=== PATIENT | female | born 1960 | race Caucasian/White ===

== ENCOUNTER 2016-09-13 14:19 | Emergency (ER) | payer MEDICARE, OTHER ==
[~2016-09-13] VITALS: Ht 157.5 cm; Wt 50.0 kg
[2016-09-13 14:21] VITALS: Ht 157.5 cm; Wt 50.0 kg
[2016-09-13 14:25] VITALS: BP 157/99; PULSE 79; RESP 22; TEMP 97.9
[2016-09-13] MEDS ORDERED: morphine 4 MG/ML VIAL IV STA (14:38)
[2016-09-13] MEDS ORDERED: ONDANSETRON 4 MG INJ IV STA (14:38)
--- NOTE | 2016-09-13 15:01 | ERD ---
ER Documentation Chief Complaint Date/Time DATE: 09/13/16 TIME: 14:59 Chief Complaint HTN WITH EYE PAIN HPI Patient is a 55-year-old female who had cataract surgery done this morning. She comes in via ambulance reporting severe right eye pain with vomiting secondary to the pain. She does not have visual loss however. She denies any trauma to the eye, fever, rhinorrhea, sore throat, otalgia, headache. She states she was in her usual state of health prior to the surgery. She says that when she does open her eyes she can see both myself and the nurse but we do appear blurry. In the remainder of the systems are negative. ROS All systems reviewed and are negative except as per history of present illness. Allergies Allergies: Coded Allergies: No Known Allergy (Unverified , 09/13/16) PMhx/Soc History of Surgery: Yes (right eye cataract sx in am 09/13/16) Anesthesia Reaction: No Hx Neurological Disorder: No Hx Respiratory Disorders: No Hx Cardiac Disorders: Yes (HTN) Hx Psychiatric Problems: No Hx Miscellaneous Medical Probl: Yes (DM) Hx Alcohol Use: No Hx Substance Use: No Hx Tobacco Use: No Smoking Status: Never smoker FmHx Family History: diabetes Physical Exam Vitals Vital Signs Date Time Temp Pulse Resp B/P Pulse Ox O2 Delivery O2 Flow Rate FiO2 09/13/16 14:25 97.9 79 22 157/99 99 Room Air 09/13/16 14:21 97.9 77 22 207/84 99 Physical Exam Const: Well-developed well-nourished female on the bed actively vomiting Head: Atraumatic, normocephalic Eyes: Normal Conjunctiva, right pupil is dilated and only sluggishly reactive to light, cornea is clear, I do not appreciate any bleeding within the globe, extraocular motions are intact ENT: Normal External Ears, Nose and Mouth. Neck: Full range of motion..~ No meningismus. Resp: Clear to auscultation bilaterally Cardio: Regular rate and rhythm, no murmurs Abd: Soft, non tender, non distended. Normal bowel sounds Skin: No petechiae or rashes Neur: Awake and alert oriented 3, GCS equals 15 Psych: Normal Mood and Affect Results 24 hrs Current Medications Medications (Trade) Dose Ordered Sig/Millie Route PRN Reason Start Time Stop Time Status Last Admin Dose Admin Morphine Sulfate (morphine) 4 mg ONCE STAT IV 09/13/16 14:38 09/13/16 14:39 DC 09/13/16 14:44 Ondansetron HCl (Zofran Inj) 8 mg ONCE STAT IV 09/13/16 14:38 09/13/16 14:39 DC 09/13/16 14:44 Procedures/MDM I spoke with the patient's surgeon, Dr. Mario, he stated that they will be at the [facility] until 1700 p.m. They preferred to see her at the eye clinic immediately. I told them that I was giving her something for pain and nausea prior to discharge. They were in agreement with this. The patient is to go straight to their eye clinic for further evaluation of her eye pain postoperatively. I will fill out a transfer form for her to take with her. Departure Diagnosis: Primary Impression: Pain in eye Laterality: right Qualified Code: H57.11 - Pain in eye, right Additional Impression: Vomiting Vomiting type: unspecified Vomiting Intractability: unspecified Nausea presence: with nausea Qualified Code: R11.2 - Nausea and vomiting, intractability of vomiting not specified, unspecified vomiting type Condition: Good Patient Instructions: Anesthesia: After Your Surgery, Diet, Vomiting Or Diarrhea [[id number]], Eye Patch Additional Instructions: You are to go immediately to the [facility]. You are to see Dr. Mario for further evaluation of your eye pain. There clinic closes at 5 PM. Do not go anywhere between here and there. This is important that they see you for your eye pain. Return to the emergency department for any new or worsening symptoms. DEYSI ALCANTARA Sep 13, 2016 15:01
[2016-09-13] MEDS ORDERED: ONDA4TAB8 PO (15:09)
[2016-09-13] MEDS ORDERED: HYDR-906 PO (15:10)
== END 2016-09-13 15:45 | disposition short-term general hospital (02) ==
LOC: E/R 14:19
DX: H57.11 Ocular pain, right eye (principal); R11.2 Nausea with vomiting, unspecified; I10 Essential (primary) hypertension; E11.9 Type 2 diabetes mellitus without complications
CPT/HCPCS: 96374; 96375; 99285; J2270; J2405

== ENCOUNTER 2017-12-22 10:02 | Emergency (ER) | END 2017-12-22 17:09 | disposition home or self-care (01) ==